=== PATIENT | male | born 1970 | race Caucasian/White ===

== ENCOUNTER 2024-07-23 00:28 | Emergency (ER) | payer BC, OTHER ==
[2024-07-23 00:54] VITALS: TEMP 97.1
[2024-07-23 02:17] VITALS: RESP 16
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
[2024-07-23 03:03] VITALS: BP 132/78; PULSE 71
[2024-07-23 03:05] VITALS: O2SAT 96
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
== END 2024-07-23 03:17 | disposition home or self-care (01) ==
LOC: ED 00:28
DX: Z04.71 Encounter for examination and observation following alleged adult physical abuse (principal); S00.12XA Contusion of left eyelid and periocular area, initial encounter; S00.83XA Contusion of other part of head, initial encounter; S09.90XA Unspecified injury of head, initial encounter; Y04.2XXA Assault by strike against or bumped into by another person, initial encounter; Y92.149 Unspecified place in prison as the place of occurrence of the external cause; Y99.0 Civilian activity done for income or pay; R51.9 Headache, unspecified; M54.2 Cervicalgia; I10 Essential (primary) hypertension; Z79.899 Other long term (current) drug therapy; Z72.0 Tobacco use
CPT/HCPCS: 70450; 70486; 72125; 99283; 99284